=== PATIENT | female | born 1990 | race Caucasian/White ===

== ENCOUNTER 2024-01-22 09:54 | Outpatient (CLI) | payer OTHER, SELFPAY ==
[2024-01-22 10:13] LABS: Hematocrit 40.4 % (37.0-47.0); Hemoglobin 13.3 g/dL (12.0-15.0)
== END 2024-01-22 09:55 | disposition home or self-care (01) ==
PROVIDERS: Visit Provider Obstetrics & Gynecology
DX: Z01.818 Encounter for other preprocedural examination (principal); R10.2 Pelvic and perineal pain
CPT/HCPCS: 36415; 85014; 85018; 86850; 86900; 86901

== ENCOUNTER 2024-01-28 00:30 | Day surgery (SDC) | payer OTHER, SELFPAY ==
[2024-01-18 16:12] VITALS: BMI 28.4
--- NOTE | 2024-01-18 16:19 | PC.NURSE ---
Report to the Outpatient Waiting Room, entrance under the green pavilion located off [facility], at time _0600_ on date _[id number]_. Planned Procedure Time: _0730_. Time changes happen often and if your time is changed the preop area will call you the afternoon before. - You and your visitor will be asked to self-screen and do not enter if you have any COVID symptoms. - A mask is optional within the hospital at this time. Patients may have clear liquids (water, carbonated beverages, clear teas, apple juice) until 3 hours prior to surgery with a maximum of 20 ounces. - No food from midnight until time of surgery Take the following medications with a SIP of water the morning of surgery: __None DO NOT STOP ANY OF YOUR OTHER PRESCRIPTION MEDICATIONS PRIOR TO SURGERY ?EXCEPT THE FOLLOWING Medications to discontinue per physician None Date to take last dose Please no make-up, nail bolivian, hairspray, perfume, deodorant, or body powder the day of surgery. No jewelry (including any body piercings) or valuables the day of surgery, leave them at home. Please take a shower or bath the night before, or the morning of, surgery with an antibacterial soap. Wear comfortable, loose fitting clothing. - Jewelry must be removed prior to entering the operating room. Rings and piercings that are not removed may be cut off. - The hospital will not accept responsibility for valuables. - Please leave all valuables, including medications, at home the day of surgery. If you are going home after surgery, a licensed belly dump driver must drive you home. - NO public transportation without another adult if you receive anesthesia. - We recommend that an adult stay with you for 24 hours following discharge. - We also recommend that you do not drive, make important decision, drink alcoholic beverages, or take any drugs that were not prescribed by your health care provider for at least 24 hours after your discharge time. Follow any additional instructions given to you from your surgeon. If you or anyone in your household have experienced Covid symptoms in the past week, please notify your surgeon or the nurse liaison at the phone number below for possible testing. Telephone instructions given to _Charis__and asked if any additional questions and then verbalized understanding. Patient advised to call surgeon office or pre surgery nurse liaison [phone] if any additional questions.
--- NOTE | 2024-01-25 12:42 | PM.IMHP ---
H&P: HPI History of Present Illness Date/Time: 01/25/24 12:42 Chief Complaint: Pelvic pain and bleeding Narrative: This is a 33-year-old 3 para 3 for laparoscopy hysteroscopy dilatation curettage secondary to dyspareunia pelvic pain irregular bleeding periods extremely heavy she has pain with intercourse makes possible sex she has had negative STD cultures. She had a pelvic ultrasound which showed the myometrium in endometrial canal to be unremarkable without any masses in light of her continued bleeding and pain she is admitted for laparoscopy/hysteroscopy/dilatation curettage. Risks and benefits reviewed including but not exclusive of , aspiration pneumonia, bleeding, transfusion, perforation injury to bowel, bladder, ureters, or other internal organs with the need for open laparotomy. She received the ACOG handout entitled laparoscopy, hysteroscopy, dilatation curettage respectively. She had all questions answered and asked to proceed PMFSH Social History Social History Years smoked: 15 Smoking status: Current every day smoker Tobacco type: cigarettes and e-cigarettes/vaping Living arrangements: with family Spiritual care concerns: No Meds Home Medications and Allergies Home Medications Medication Instructions Recorded Confirmed Type No Home Medications 01/18/24 01/18/24 History Allergies Allergy/AdvReac Type Severity Reaction Status Date / Time No Known Allergies Allergy Verified 01/18/24 16:11 Exam Const: General: cooperative, healthy appearing, comfortable and average body habitus Orientation/consciousness: oriented to person, oriented to place and oriented to time Resp: Effort & Inspection: normal respiratory effort Cardio: Rate: regular rate Rhythm: regular rhythm Heart sounds: S1 normal heart sound present and S2 normal heart sound present GI: Inspection: normal to inspection : External Female Exam: normal external appearance Speculum Exam - Vagina: normal appearance of the vagina Speculum Exam - Cervix: normal appearance of the cervix Bimanual exam- vagina & uterus: enlarged Bimanual Exam- Adnexa, other: tender bilaterally Assessment and Plan Assessment and plan (1) Pelvic pain: Code(s): R10.2 - Pelvic and perineal pain Status: Acute (2) Dyspareunia: Status: Acute (3) Excessive bleeding: Code(s): R58 - Hemorrhage, not elsewhere classified Status: Acute Assessment and Plan: Hysteroscopy/dilatation curettage/laparoscopy
--- NOTE | 2024-01-27 15:01 | P.PNAN_ITS ---
Anes - Initial Pre Proc Eval Procedure: Operation Date: 01/28/24 07:30 Proposed Procedures p Diagnostic Laparoscopy, Hysteroscopy Dilation and Curettage - Jonas Lazaro MD Date/Time: 01/27/24 15:01 Surgeon: Jonas Lazaro MD Pre Op Diagnosis: pelvic pain, irr. bleeding, dyspareunia Patient Data Age: 33 Gender: F Height: 1.55 m Weight: 68.2 kg Allergies Allergy/AdvReac Type Severity Reaction Status Date / Time No Known Allergies Allergy Verified 01/28/24 06:04 Home Medications Medication Instructions Recorded Confirmed Type hydrocodone 5 mg-acetaminophen 325 1 tablet PO Q4H PRN pain #20 tabs 01/28/24 Rx mg tablet Patient hx anesthesia problems: none Family hx anesthesia problems: none Results Review: All pre-operative results and documents have been reviewed as part of the pre- operative evaluation. [facility] Social History Social History Years smoked: 15 Smoking status: Current every day smoker Tobacco type: cigarettes and e-cigarettes/vaping Living arrangements: with family Spiritual care concerns: No Anes - Eval Final PreProcedure Day of Procedure 01/27/24 15:01 Patient weight: overweight Heart: regular rate and rhythm Lungs: clear to auscultation Airway: Mallampati scale class II Neurological: alert and oriented Last oral intake: >/= 8 hours ASA classification: II Emergent: no Anesthetic plan: proceed Anesthesia type and monitoring: general ETT and standard monitoring Results Review: All pre-operative results and documents have been reviewed as part of the pre- operative evaluation. Informed Consent: The patient's anesthetic plan and its attendant risks and benefits were discussed with the patient/family/POA. Questions were solicited and answers provided to the satisfaction of the patient/family/POA.
[2024-01-28] VITALS (10 sets, daily range): BP systolic 98–135; BP diastolic 65–90; PULSE 55–91; RESP 10–20; TEMP 36.1–36.9; O2SAT 99–100
--- NOTE | 2024-01-28 06:09 | WPDHPUPDATE1 ---
History and Physical Update Update Date/Time: 01/28/24 06:09 History and Physical has been reviewed, including an updated exam of the patient. There are NO changes in the patient's condition. Risks, benefits, and alternatives have been discussed and questions answered. Patient agrees to proceed with procedure.
[2024-01-28] MEDS: KETOROLAC 15 MG/ML VIAL (*BKC) IV PUSH (06:32)
[2024-01-28] MEDS: LACTATED RINGERS 1,000 ML 30 ML IV CONT (06:32)
[2024-01-28] MEDS: ACETAMINOPHEN 500 MG TABLET 1000 MG PO (06:32)
--- NOTE | 2024-01-28 08:00 | W.PM.PROC2 ---
Procedure Note - Detailed Date of Procedure 01/28/24 Pre-op Diagnosis pelvic pain, irr. bleeding, dyspareunia Post-op Diagnosis Other (Pelvic pain / bilateral ovarian cyst/ irregular bleeding. Dyspareunia) Procedure Performed laparoscopy with destruction of bilateral ovarian cysts /hysteroscopy/ dilatation curettage Surgeon Jonas Lazaro MD Anesthesia General Indications 33-year-old female with excessive heavy bleeding and pelvic pain status post tubal ligation Findings tubes status post tubal ligation. Bilateral simple appearing ovarian cyst. Normal-appearing appendix and gallbladder and liver edge. Hysteroscopy the uterus sounded to 10cm. Thick irregular endometrial tissue was seen. Description of Procedure Patient was prepped draped in normal sterile fashion placed in dorsal lithotomy position. Under excellent general trach anesthesia weighted speculum placed in posterior fornix vagina. Anterior lip of the cervix grasped with a single-tooth tenaculum. Benites's cannula inserted the cervix and attached to the single-tooth. This will be used later for uterine manipulation. Bladder emptied of clear urine and a weighted speculum was removed. Gloves were changed. Supraumbilical incision made the Veress needle passed the abdomen. Abdomen filled with CO2 gas to 15 the 5mm trocar advanced under direct visualization with the Optiview when no injury seen. Patient placed in Trendelenburg and a suprapubic incision made. No injury seen. Bilateral ovarian cysts were seen in using the 35 w per sec cautery the cysts were emptied and the irrigated. No evidence of endometriosis was seen. The tubes were status post tubal ligation. The appendix liver gallbladder edge all appeared within normal limits. The trocars removed and the incisions closed with 4 Monocryl glue after gas removed from the abdomen. Attention turned to the hysteroscopy be portion. Uterus sounded to 10cm. Serial dilatation with fragmented dilators performed followed by passage of the 5mm visualizing hysteroscope using normal saline as visualizing medium. Thick irregular endometrial tissue could be seen. Each fallopian tube os was visualized. No definitive abnormalities were seen. The uterus was then scraped over the entire 360?. Once a good grating sound was heard the instruments withdrawn and the patient was awake and went to recovery in satisfactory condition. All sponge, needle, instrument counts were correct. There were no immediate complications Estimated Blood Loss 5 Drains No Packing No Pathology Yes Complications No immediate complications Condition Stable Disposition PACU
--- NOTE | 2024-01-28 08:32 | SUR.PHASEI ---
0830: Simple mask removed.
== END 2024-01-28 10:03 | disposition home or self-care (01) ==
PROVIDERS: Visit Provider Obstetrics & Gynecology
PROC: 0UDB8ZZ Extraction of Endometrium, Via Natural or Artificial Opening Endoscopic (ICD-10-PCS; CPT 58558; principal; 2024-01-28 07:30)
DX: N83.202 Unspecified ovarian cyst, left side (principal); N83.201 Unspecified ovarian cyst, right side; F17.290 Nicotine dependence, other tobacco product, uncomplicated; Z79.891 Long term (current) use of opiate analgesic; Z98.51 Tubal ligation status
CPT/HCPCS: 58662; 58563; 36415; 85014; 85018; 86850; 86900; 86901; 88305; A9270; J0330; J1100; J1885; J2250; J2405; J2704; J3010; J7030; J7120

== ENCOUNTER 2024-05-30 18:41 | Emergency (ER) | payer OTHER, SELFPAY ==
[2024-05-30 19:05] VITALS: BP 145/90; PULSE 77; RESP 16; TEMP 36.8; O2SAT 100
--- NOTE | 2024-05-30 19:29 | ED_ITS ---
HPI - Skin/Abscess/Foreign Bdy General Chief complaint: Skin/Abscess/Foreign Body Stated complaint: LT Side insect bite Time Seen by Provider: 05/30/24 19:29 Source: patient, RN notes reviewed and old records reviewed Mode of arrival: ambulatory Limitations: no limitations History of Present Illness HPI narrative: 34-year-old female presents to the [facility] with concerns of a red, raised, firm area to the right lower rib area. Patient states that she noticed it 2 days ago. Area is warm to touch. Related Data Allergies Allergy/AdvReac Type Severity Reaction Status Date / Time No Known Allergies Allergy Verified 01/28/24 06:04 Review of Systems Review of Systems: All systems reviewed & are unremarkable except as noted in HPI and below Constitutional: Constitutional: Reports no additional constitutional comp laints ENT: Reports system reviewed and no additional complaints, except as documented Cardiovascular: Cardiovascular: Reports no additional cardiovascular complaints, Denies chest pain and Denies dyspnea Respiratory: Respiratory: Reports no additional respiratory complaints, Denies chest congestion, Denies cough and Denies dyspnea Gastrointestinal: Gastrointestinal: Reports no additional gastrointestinal complaints, Denies abdominal pain, Denies nausea and Denies vomiting Musculoskeletal: Musculoskeletal: Reports no additional musculoskeletal comp laints PMFSH Social History Social History Years smoked: 15 Smoking status: Current every day smoker Tobacco type: cigarettes and e-cigarettes/vaping Living arrangements: with family Spiritual care concerns: No Comments At the time of my signature, I reviewed and agree with the nursing past medical, surgical, social, and family history. There is no relevant family history pertinent to the patient complaint. Exam Const: General: cooperative, healthy appearing, comfortable, no acute distress, well developed, alert and well nourished Nutritional Appearance: well nourished Orientation/consciousness: patient oriented x3 Limitations: no limitations HENMT: Head: normal to inspection Ears: hearing grossly normal bilaterally and external ears normal Face/Nose/Sinus: Normal external nose present, normal facial exam and face symmetric Face and sinus: normal facial exam and face symmetric Eyes: General: appearance normal, both eyes and all related structures Alignment and Position: alignment normal Periorbital: periorbital findings normal Neck: Neck: normal visual inspection, full ROM, no lymphadenopathy and no meningeal signs Chest: Chest palpation & inspection: normal inspection of the chest Resp: Effort & Inspection: normal respiratory effort and able to speak in complete sentences Cardio: Rate: regular rate Skin: General skin exam: normal color and no rashes or lesions noted Rashes: no rashes Wounds: no wounds Full body images: 1. 1x1 cm red raised area, warm, pink area extends to by 1 cm. No drainage. No fluctuance. Neuro: General: patient oriented x3, gait normal, tone normal, moves all extremities and no meningeal signs Cognition (Neuro): normal cognition Speech: normal speech Gait exam (Neuro): Normal gait present Extrem: General: normal to inspection, full ROM, capillary refill normal and normal gait Psych: Appearance: grossly normal and well kempt Mental Status: mental status grossly normal Speech and movement: Normal speech and movement present and Clear speech present Affect: normal affect Attitude: cooperative Course Course Level of Care: Express Care Visit Vital Signs Vital signs: Vital Signs Temperature 98.3 F 05/30/24 19:05 Pulse Rate 77 05/30/24 19:05 Respiratory Rate 16 05/30/24 19:05 Blood Pressure 145/90 H 05/30/24 19:05 Pulse Oximetry 100 05/30/24 19:05 Oxygen Delivery Room Air 05/30/24 19:05 Temperature 98.3 F 05/30/24 19:05 Pulse Rate 77 05/30/24 19:05 Respiratory Rate 16 05/30/24 19:05 Blood Pressure 145/90 H 05/30/24 19:05 Pulse Oximetry 100 05/30/24 19:05 Oxygen Delivery Room Air 05/30/24 19:05 Reviewed MDM - Skin/Abscess/Foreign Bdy MDM Narrative Medical decision making narrative: 34-year-old female presents with redness, irritation to the right rib anterior portion Patient sitting comfortably in exam room. Nontoxic, vitals are stable. Concern for cellulitis versus insect bite or inflammation. Will treat with antibiotic Patient appropriate for outpatient treatment and follow-up Discharge instructions reviewed with patient, as well as provided in writing per nursing staff. The instructions also include specific and strict return/GO TO THE ER as well as f/u information. All questions have been answered, and the patient deny any further questions with discharge and discharge plan. Some parts of this dictation were generated by voice recognition software and may contain typographical and/or grammatical inaccuracies. Differential Diagnosis Differential diagnosis: Likely herpes zoster, cellulitis, insect bites and contact dermatitis Critical Care Time Critical Care Time Critical Care Time: No Discharge Plan Discharge Clinical Impression: Cellulitis Qualifiers: Site of cellulitis: unspecified site Qualified Code(s): L03.90 - Cellulitis, unspecified Patient Disposition: Home, Self-Care Condition: Stable Instructions: Antibiotic Form, Cellulitis (ED), Insect Bite or Sting (ED) Additional Instructions: Wash area with warm soapy water twice daily. Pat dry. Apply warm compresses every 2-3 hours for 15 minutes. Take antibiotic as prescribed Follow-up with primary care provider For new or worsening symptoms go directly to the emergency room Patient Language: Panamanian Prescriptions: New cephalexin 500 mg capsule 500 mg PO Q8H 7 Days Qty: 21 0RF Follow-up/Referrals: PHYSICIAN,WALL CLEANER [Primary Care Provider] - Stand Alone Forms: Work/School Release IP Time of Disposition: 19:38
== END 2024-05-30 19:43 | disposition home or self-care (01) ==
PROVIDERS: Emergency Provider Nurse Practitioner
DX: L03.313 Cellulitis of chest wall (principal); F17.210 Nicotine dependence, cigarettes, uncomplicated; F17.290 Nicotine dependence, other tobacco product, uncomplicated
CPT/HCPCS: 99213; G0463

== ENCOUNTER 2024-08-21 13:56 | Emergency (ER) | payer OTHER, SELFPAY ==
[2024-08-21 14:18] VITALS: BP 134/87; PULSE 90; RESP 16; TEMP 37; O2SAT 100
--- NOTE | 2024-08-21 14:49 | ED_ITS ---
HPI - General Adult General Chief complaint: Upper Respiratory Infection Stated complaint: Cough History of Present Illness HPI narrative: Charis Austin is a 34-year-old female who presents today with complaints of having a cough often nonproductive for the past 2 weeks. She does not think that she has had any fevers denies chest pain denies shortness of breath. Related Data Allergies Allergy/AdvReac Type Severity Reaction Status Date / Time No Known Allergies Allergy Verified 08/21/24 14:25 Review of Systems Review of Systems: All systems reviewed & are unremarkable except as noted in HPI and below PMFSH Social History Social History Years smoked: 15 Smoking status: Current every day smoker Tobacco type: cigarettes and e-cigarettes/vaping Living arrangements: with family Spiritual care concerns: No Exam Narrative: GENERAL: Well-appearing, well-nourished, and in no acute distress. HEAD: Normocephalic, atraumatic. EYES: PERRLA and EOMI. ENT: Nares clear, no rhinorrhea or epistaxis. Mucous membranes moist. Oropharynx without tonsillar hypertrophy exudate or other lesions. Bilateral TMs pearly murphy nonbulging NECK: Supple. No adenopathy or masses. No carotid bruits or JVD CHEST: Clear with mild adventitious sounds in the posterior bases to auscultation. No respiratory distress. No wheezes HEART: Regular rate and rhythm. No murmur heard. Normal peripheral pulses. ABDOMEN: Soft, nontender, nondistended, normal active bowel sounds. EXTREMITIES: Normal range of motion. No edema. SKIN: Warm, dry, no rash. NEURO: No focal deficits. Alert and oriented x3. PSYCH: Normal mood and affect. Course Course Level of Care: Express Care Visit Vital Signs Vital signs: Vital Signs Temperature 37.0 C 08/21/24 14:18 Pulse Rate 90 08/21/24 14:18 Respiratory Rate 16 08/21/24 14:18 Blood Pressure 134/87 08/21/24 14:18 Pulse Oximetry 100 08/21/24 14:18 Oxygen Delivery Room Air 08/21/24 14:18 Temperature 37.0 C 08/21/24 14:18 Pulse Rate 90 08/21/24 14:18 Respiratory Rate 16 08/21/24 14:18 Blood Pressure 134/87 08/21/24 14:18 Pulse Oximetry 100 08/21/24 14:18 Oxygen Delivery Room Air 08/21/24 14:18 Medical Decision Making MDM Narrative Medical decision making narrative: ED COURSE AND MEDICAL DECISION MAKING: This 34 year old patient presents with symptoms most suggestive of viral upper respiratory tract infection. Lungs are clear bilaterally With mild adventitious sounds in the bases posteriorly- without any respiratory distress or accessory muscle use. based on exam and length of symptoms will treat her for acute bronchitis with azithromycin. Patient is discharged home in stable condition with expectant management. Return precautions were provided. Procedures: Pulse oximetry interpretation - not hypoxic. Review of medical records. DISPOSITION: Discharged home in stable condition. IMPRESSION: Acute Bronchitis Medical Records Medical records reviewed: Yes I reviewed the external patient's medical records. Vital Signs Vital Signs: Vital Signs Temperature 37.0 C 08/21/24 14:18 Pulse Rate 90 08/21/24 14:18 Respiratory Rate 16 08/21/24 14:18 Blood Pressure 134/87 08/21/24 14:18 Pulse Oximetry 100 08/21/24 14:18 Oxygen Delivery Room Air 08/21/24 14:18 Temperature 37.0 C 08/21/24 14:18 Pulse Rate 90 08/21/24 14:18 Respiratory Rate 16 08/21/24 14:18 Blood Pressure 134/87 08/21/24 14:18 Pulse Oximetry 100 08/21/24 14:18 Oxygen Delivery Room Air 08/21/24 14:18 vitals reviewed by me Discharge Plan Discharge Clinical Impression: Acute bronchitis Qualifiers: Bronchitis organism: unspecified organism Qualified Code(s): J20.9 - Acute bronchitis, unspecified Patient Disposition: Home, Self-Care Condition: Stable Instructions: Antibiotic Form Additional Instructions: Start taking the Azithromycin as ordered Continue to push oral hydration Get plenty of rest Follow up with your PCP in 2-5 days to ensure you are improving IF you develop any worsening symptoms or concerns return or seek emergency care Patient Language: [place] Citizen Prescriptions: New azithromycin 250 mg tablet See Rx Instructions .ROUTE .COMPLEX Qty: 6 0RF Rx Instructions: For 250 mg dose pack: take 500 mg today (day 1), then 250 mg for 4 days (days 2-5) Follow-up/Referrals: Zeyad Monique MD [Primary Care Provider] - 3 Days Stand Alone Forms: Work/School Release IP Time of Disposition: 14:53
== END 2024-08-21 14:58 | disposition home or self-care (01) ==
PROVIDERS: Emergency Provider Nurse Practitioner Family; PCP Family Medicine
DX: J20.9 Acute bronchitis, unspecified (principal); F17.210 Nicotine dependence, cigarettes, uncomplicated; F12.90 Cannabis use, unspecified, uncomplicated
CPT/HCPCS: 99213; G0463

== ENCOUNTER 2024-09-24 08:52 | Emergency (ER) | payer OTHER, SELFPAY ==
--- NOTE | 2024-09-24 08:58 | ED.URI ---
HPI - URI/Sore Throat General Chief Complaint: Upper Respiratory Infection Stated Complaint: sore throat , cough Time Seen by Provider: 09/24/24 08:59 Source: patient, RN notes reviewed and old records reviewed Mode of arrival: ambulatory Limitations: no limitations History of Present Illness HPI Narrative: Patient presents with complaints of 3 days of runny nose, sore throat, cough. She has been taking [id number] medication with minimal relief. She was treated approximately 1 month ago with azithromycin for bronchitis. States she completed treatment as directed and improved. 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 She is nontoxic appearing and in no obvious Related Data Home Medications ?Medication ?Instructions ?Recorded ?Confirmed ?Last Taken ?Type No Home Medications 09/21/24 09/21/24 Unknown History Allergies Allergy/AdvReac Type Severity Reaction Status Date / Time No Known Allergies Allergy Verified 09/24/24 08:55 Review of Systems Review of Systems: All systems reviewed & are unremarkable except as noted in HPI and below Constitutional: Constitutional: Reports no additional constitutional complaints and Reports lethargy ENT: Reports system reviewed and no additional complaints, except as documented, Reports nasal congestion, Reports nasal discharge and Reports sore throat Cardiovascular: Cardiovascular: Reports no additional cardiovascular complaints Respiratory: Respiratory: Reports no additional respiratory complaints and Reports cough Gastrointestinal: Gastrointestinal: Reports no additional gastrointestinal complaints [facility] Social History Social History Smoking packs per day: 0.5 Smoking cigarettes per day: 10.0 Years smoked: 16 Smoking pack-years: 8.00 Smoking status: Former smoker Tobacco type: e-cigarettes/vaping Alcohol intake: current Alcohol use details: very rare Living arrangements: with family Spiritual care concerns: No Comments At the time of my signature, I reviewed and agree with the nursing past medical, surgical, social, and family history. There is no relevant family history pertinent to the patient complaint. Exam Const: General: cooperative, no acute distress, alert and awake Orientation/consciousness: oriented to person, oriented to place and oriented to time HENMT: Head: normal to inspection Ears: TM's normal bilaterally Mouth: Yes moist mucous membranes Throat: posterior oropharynx normal Resp: Effort & Inspection: normal respiratory effort and able to speak in complete sentences Auscultation: clear to auscultation bilaterally, no crackles, no rales, no rhonchi and no wheezes Cardio: Palpation: normal PMI Rate: regular rate Rhythm: regular rhythm Heart sounds: S1 normal heart sound present and S2 normal heart sound present Neuro: General: oriented to person, oriented to place and oriented to time Cranial nerves: Yes CN's II-XII intact bilaterally Psych: Appearance: grossly normal Thought process: Normal thought process present Insight: Good insight present (Psych) Judgement: Good judgement present (Psych) Course Course Level of Care: Express Care Visit Vital Signs Vital signs: Vital Signs Temperature 98.9 F 09/24/24 09:01 Pulse Rate 102 H 09/24/24 09:01 Respiratory Rate 16 09/24/24 09:01 Blood Pressure 129/84 09/24/24 09:01 Pulse Oximetry 99 09/24/24 09:01 Oxygen Delivery Room Air 09/24/24 09:01 Temperature 98.9 F 09/24/24 09:01 Pulse Rate 102 H 09/24/24 09:01 Respiratory Rate 16 09/24/24 09:01 Blood Pressure 129/84 09/24/24 09:01 Pulse Oximetry 99 09/24/24 09:01 Oxygen Delivery Room Air 09/24/24 09:01 Reviewed MDM - URI/Sore Throat MDM Narrative Medical decision making narrative: negative flu, negative COVID, negative strep. Culture pending. Supportive care measures discussed with patient. Work note provided. Symptoms are likely viral in origin Discharge instructions reviewed with patient, as well as provided in writing per nursing staff. The instructions also include specific and strict return/GO TO THE ER as well as f/u information. All questions have been answered, and the patient deny any further questions with discharge and discharge plan. Some parts of this dictation were generated by voice recognition software and may contain typographical and/or grammatical inaccuracies. Differential Diagnosis Differential diagnosis: Likely upper respiratory infection, otitis media, viral infection, influenza and pharyngitis Medical Records Attestation: I reviewed the patient's medical records. Lab Data Attestation: I reviewed the patient's lab results. Discharge Plan Discharge Clinical Impression: Upper respiratory infection Qualifiers: URI type: unspecified viral URI Qualified Code(s): J06.9 - Acute upper respiratory infection, unspecified Patient Disposition: Home, Self-Care Condition: Stable Instructions: Antibiotic Form, Cold Symptoms (ED) Additional Instructions: continue jskj-men-[id number] medications to treat your symptoms. Follow-up with primary care provider. Emergency department for any new or worsening symptoms. Push fluids, get plenty of rest. Patient Language: Irish Prescriptions: No Action No Home Medications Follow-up/Referrals: Zeyad Monique MD [Primary Care Provider] - 2 Weeks Stand Alone Forms: Work/School Release IP Time of Disposition: 09:28
[2024-09-24 09:01] VITALS: BP 129/84; PULSE 102; RESP 16; TEMP 37.2; O2SAT 99
[2024-09-24 09:27] LABS: EDCOVIDSCREEN Negative (Negative); EDINFLUASCREEN Negative (Negative); EDINFLUBSCREEN Negative (Negative); EDSTREPNEGPOS1 Negative (Negative)
== END 2024-09-24 09:29 | disposition home or self-care (01) ==
PROVIDERS: Emergency Provider Nurse Practitioner Family; PCP Family Medicine
DX: J06.9 Acute upper respiratory infection, unspecified (principal); Z20.822 Contact with and (suspected) exposure to COVID-19; F17.290 Nicotine dependence, other tobacco product, uncomplicated
CPT/HCPCS: 87081; 87426; 87804; 87880; 99213; G0463

== ENCOUNTER 2024-09-26 16:48 | Emergency (ER) | payer OTHER, SELFPAY ==
--- NOTE | ~2024-09-26 | XR_ITS ---
EXAMINATION: XR chest 2V Exam Date/Time: 09/26/2024 17:40 CDT HISTORY: cough Comparison: None. RESULT: Lines, tubes, and devices: None. Lungs and pleura: Clear. Cardiomediastinal silhouette: Normal. Other: No acute osseous or upper abdominal finding. IMPRESSION: No acute cardiopulmonary process. Reviewed, dictated and finalized at location K.
[2024-09-26 16:56] VITALS: BP 142/99; PULSE 86; RESP 16; TEMP 36.6; O2SAT 100
--- NOTE | 2024-09-26 17:30 | ED.URI ---
HPI - URI/Sore Throat General Chief Complaint: Upper Respiratory Infection <Eli Cee PA-C - Last Filed: 09/29/24 17:02> Stated Complaint: shortness of breath x 2 weeks <Eli Cee PA-C - Last Filed: 09/29/24 17:02> Time Seen by Provider: 09/26/24 17:30 <Eli Cee PA-C - Last Filed: 09/29/24 17:02> Focused HPI: This is a 34 year old female that presents to the ER for cold symptoms. Ongoing over the last couple of weeks. Reports she was seen at urgent care and had negative strep, covid and influenza. Reports productive cough. She was told to take over the counter medications and is not feeling any better. GENERAL: Well-appearing, well-nourished, and in no acute distress. HEAD: Normocephalic, atraumatic. CHEST: Clear to auscultation. ?No respiratory distress. HEART: Regular rate and rhythm.? NEURO: ?Alert and oriented x3. Patient screened in triage and initial orders placed.? ?Additional care and disposition to be based upon?diagnostic testing and treatment. <Eli Cee PA-C - Last Filed: 09/29/24 17:02> History of Present Illness HPI Narrative: Agree with the HPI above. Patient does have sick contacts at home and at work. <Jerod Astorga MD - Last Filed: 09/26/24 21:08> Related Data Allergies/Adverse Reactions: Allergies Allergy/AdvReac Type Severity Reaction Status Date / Time No Known Allergies Allergy Verified 09/24/24 08:55 <Eli Cee PA-C - Last Filed: 09/29/24 17:02> Review of Systems Review of Systems: As reviewed above in HPI <Jerod Astorga MD - Last Filed: 09/26/24 21:08> PMFSH Social History Social History: Social History Smoking packs per day: 0.5 Smoking cigarettes per day: 10.0 Years smoked: 16 Smoking pack-years: 8.00 Smoking status: Former smoker Tobacco type: e-cigarettes/vaping Alcohol intake: current Alcohol use details: very rare Living arrangements: with family Spiritual care concerns: No <Eli Cee PA-C - Last Filed: 09/29/24 17:02> Exam Narrative: GENERAL: [Well-appearing, well-nourished, and in no acute distress.] HEAD: [Normocephalic, atraumatic.] EYES: [PERRLA and EOMI.] ENT: Posterior oropharynx is erythematous without any exudates. No tonsillar erythema or enlargement. Uvula is midline. Moist mucous membranes. NECK: Supple. CHEST: Asymmetric wheezing in the left upper part of the lobes compared to the right, no prolonged expiratory phase, no tachypnea or respiratory distress. HEART: [Regular rate and rhythm]. No murmur heard. [Normal peripheral pulses.] ABDOMEN: [Soft, nondistended], [nontender], [No rigidity or guarding] EXTREMITIES: Normal range of motion. [No edema.] SKIN: Warm, dry, no rash. NEURO: [No focal deficits]. Alert and oriented [x3.] PSYCH: [Normal mood and affect.] <Jerod Astorga MD - Last Filed: 09/26/24 21:08> Course Vital Signs Vital signs: Vital Signs Temperature 97.9 F 09/26/24 16:56 Pulse Rate 86 09/26/24 16:56 Respiratory Rate 16 09/26/24 16:56 Blood Pressure 142/99 H 09/26/24 16:56 Pulse Oximetry 100 09/26/24 16:56 Oxygen Delivery Room Air 09/26/24 16:56 Temperature 98.9 F 09/26/24 20:18 Pulse Rate 80 09/26/24 20:18 Respiratory Rate 17 09/26/24 20:18 Blood Pressure 135/102 H 09/26/24 20:18 Pulse Oximetry 100 09/26/24 20:22 Oxygen Delivery Room Air 09/26/24 20:22 <Eli Cee PA-C - Last Filed: 09/29/24 17:02> Vital Signs Temperature 97.9 F 09/26/24 16:56 Pulse Rate 86 09/26/24 16:56 Respiratory Rate 16 09/26/24 16:56 Blood Pressure 142/99 H 09/26/24 16:56 Pulse Oximetry 100 09/26/24 16:56 Oxygen Delivery Room Air 09/26/24 16:56 Temperature 98.9 F 09/26/24 20:18 Pulse Rate 80 09/26/24 20:18 Respiratory Rate 17 09/26/24 20:18 Blood Pressure 135/102 H 09/26/24 20:18 Pulse Oximetry 100 09/26/24 20:22 Oxygen Delivery Room Air 09/26/24 20:22 <Jerod Astorga MD - Last Filed: 09/26/24 21:08> MDM - URI/Sore Throat MDM Narrative Medical decision making narrative: 34-year-old female presenting with upper respiratory infection symptoms and dyspnea for last several weeks. Endorses cough, congestion and mucus production. She went to urgent care 2 days ago without any treatment options. She has tried [id number] therapies without any relief of her symptoms. She is overall very well-appearing not any acute distress. Has normal vital signs without any significant tachycardia, fever, hypoxia blood pressure concerns. She has some asymmetric scattered wheezing especially left upper lobe compared to the right ridge raises suspicion for potential bronchitis, strep throat, reactive airway disease, consolidation. Patient was a former smoker for 15 years. Suspicion for COVID or influenza is high given the high infectious rates in the area. Chest x-ray obtained as well as viral swabs and strep swab. Patient is a viral swabs came back negative for COVID, flu, RSV. Strep test negative. Chest x-ray shows no acute cardiopulmonary process. Given patient's symptomatology refractory to [id number]-[id number] therapies and regimens and duration of her symptoms she would benefit from treatment options such as steroids and potential albuterol given her smoking history. Will offer prescription for Medrol Dosepak, albuterol inhaler as needed and benzonatate. Patient was made aware of her findings and stable for discharge home at this time with regular PCP follow-up. <Jerod Astorga MD - Last Filed: 09/26/24 21:08> Medical Records Attestation: I reviewed the patient's medical records. <Jerod Astorga MD - Last Filed: 09/26/24 21:08> Lab Data Attestation: I reviewed the patient's lab results. <Jerod Astorga MD - Last Filed: 09/26/24 21:08> Labs: Lab Results 09/26/24 Range/Units 20:20 Influenza A (RT-PCR) Negative (Negative) Influenza B (RT-PCR) Negative (Negative) RSV (RT-PCR) Negative (Negative) SARS-CoV-2 RNA (RT-PCR) Negative (Negative) Group A Strep (PCR) Not detected (Negative) <Eli Cee PA-C - Last Filed: 09/29/24 17:02> Lab Results 09/26/24 Range/Units 20:20 Influenza A (RT-PCR) Negative (Negative) Influenza B (RT-PCR) Negative (Negative) RSV (RT-PCR) Negative (Negative) SARS-CoV-2 RNA (RT-PCR) Negative (Negative) Group A Strep (PCR) Not detected (Negative) <Jerod Astorga MD - Last Filed: 09/26/24 21:08> Imaging Data Attestation: I personally reviewed and interpreted this imaging study as follows: <Jerod Astorga MD - Last Filed: 09/26/24 21:08> My impression: Impressions Chest X-Ray 09/26/24 17:48 IMPRESSION: No acute cardiopulmonary process. <Jreod Astorga MD - Last Filed: 09/26/24 21:08> Critical Care Time Critical Care Time Critical Care Time: No <Eli Cee PA-C - Last Filed: 09/29/24 17:02> Discharge Plan Discharge Clinical Impression: Acute upper respiratory infection, Acute viral syndrome <Eli Cee PA-C - Last Filed: 09/29/24 17:02> Patient Disposition: Home, Self-Care <CHAY Bennett Last Filed: 09/29/24 17:02> Condition: Stable <CHAY Bennett Last Filed: 09/29/24 17:02> Instructions: Antibiotic Form, Upper Respiratory Infection (DC), Viral Syndrome (ED) <Eli Cee PA-C - Last Filed: 09/29/24 17:02> Additional Instructions: Your chest x-ray shows no consolidations or evidence of a pneumonia. You tested negative for COVID, flu, RSV and strep throat. You likely have another virus causing your upper respiratory symptoms which we are unable to test for here in the ED. We will send you home with treatment regimen including steroids, albuterol inhaler as needed and benzonatate for cough suppression. Follow-up with PCP, return with any new or worsening concerns at any time. <Eli Cee PA-C - Last Filed: 09/29/24 17:02> Patient Language: Maldivian <Eli Cee PA-C - Last Filed: 09/29/24 17:02> Prescriptions: New benzonatate 200 mg capsule 200 mg PO TID PRN (Reason: cough) Qty: 20 0RF methylprednisolone [Medrol (Antione)] 4 mg tablets,dose pack See Rx Instructions .ROUTE .COMPLEX Qty: 21 0RF Rx Instructions: orally per package directions albuterol sulfate 90 mcg/actuation HFA aerosol inhaler 2 puff inhalation QID PRN (Reason: shortness of breath or wheezing) Qty: 8.5 0RF <Eli Cee PA-C - Last Filed: 09/29/24 17:02> Follow-up/Referrals: Zeyad Monique MD [Primary Care Provider] - Osmar Nick MD [Physician] - 1 Week (Needs new PCP) <Eli Cee PA-C - Last Filed: 09/29/24 17:02> Time of Disposition: 21:08 <Eli Cee PA-C - Last Filed: 09/29/24 17:02> 21:08 <Jerod Astorga MD - Last Filed: 09/26/24 21:08>
[2024-09-26 20:18] VITALS: BP 135/102; PULSE 80; RESP 17; TEMP 37.2; O2SAT 100
[2024-09-26 20:22] VITALS: O2SAT 100
[2024-09-26 20:49] LABS: Strep Group A RT-PCR NOT DETECTED (Negative)
[2024-09-26 21:00] LABS: Influenza A QL RT-PCR Negative (Negative); Influenza B QL RT-PCR Negative (Negative); RSV RNA, RT-PCR Negative (Negative); SARS-CoV-2 RNA PCR Negative (Negative)
== END 2024-09-26 21:13 | disposition home or self-care (01) ==
PROVIDERS: Emergency Provider Student in an Organized Health Care Education/Training Program; PCP Family Medicine
DX: B34.9 Viral infection, unspecified (principal); J06.9 Acute upper respiratory infection, unspecified; Z20.822 Contact with and (suspected) exposure to COVID-19
CPT/HCPCS: 71046; 87637; 87651; 99283

== ENCOUNTER 2024-10-02 15:11 | Emergency (ER) | payer OTHER, SELFPAY ==
--- NOTE | ~2024-10-02 | US_ITS ---
EXAM: PELVIC ULTRASOUND HISTORY: RLQ pain, hx ovarian cysts, r/o torsion COMPARISON: None. Reference is made to the CT examination of the abdomen and pelvis performed on the same day, approxim ately 4 hours earlier. FINDINGS: UTERUS: 9.3 x 4.4 x 5.4 cm. The uterus is anteverted and anteflexed. The endometrial complex measures 10 mm. RIGHT OVARY: The right ovary is unremarkable in echogenicity and size measuring 2.6 x 1.6 x 1.9 cm. Dopplerable flow is identified. LEFT OVARY: The left ovary is unremarkable in echogenicity and size measuring 2.4 x 1.6 x 1.6 cm Dopplerable flow is identified. No free fluid is identified within the pelvis. IMPRESSION: Unremarkable ultrasound examination of the pelvis, as detailed above. Reviewed, dictated and finalized at location A.
--- NOTE | ~2024-10-02 | CT_ITS ---
CLINICAL INDICATION: Right lower quadrant pain COMPARISON: None. TECHNIQUE: Multiple contiguous axial images of the abdomen and pelvis were performed following the ad ministration of with 100 mL Omnipaque-350 intravenous contrast The dose-length product (DLP) was 528.80 mGy-cm. Automated exposure control and iterative reconstruction technique were employed. FINDINGS/OBSERVATIONS: Visualized lower thorax: The bilateral lung bases are clear. The heart is of normal size, without pericardial effusion. Small hiatal hernia is present. Liver: The liver demonstrates homogeneous enhancement and is not enlarged measuring 18 cm in longitudinal di mension. Gallbladder and biliary system: The gallbladder is only minimally distended, and otherwise unremarkable. Pancreas: The pancreas enhances homogeneously without ductal dilatation. Spleen: The spleen enhances homogeneously and is borderline enlarged measuring 12 cm in longitudinal dimensio n. Kidneys: The bilateral kidneys enhance symmetrically without hydronephrosis or renal calculi. Adrenal glands: Unremarkable. Gastrointestinal tract: Fecal stasis within the colon. Appendix: The air-filled appendix is of normal caliber (axial series, images 95 through 124). Vasculature: Unremarkable. Lymph nodes: No pathologically enlarged or morphologically suspicious lymph nodes within the retroperitoneum or at the root of the mesentery. Pelvic structures: The bladder is decompressed limiting its evaluation. The uterus is anteverted and anteflexed. Body wall and musculoskeletal: Small fat-containing umbilical hernia. No significant degenerative disease within the lower thoracic or lumbosacral spine. IMPRESSION: No acute intra-abdominal pathology, as detailed above. Reviewed, dictated and finalized at location A.
[2024-10-02 15:47] VITALS: BP 116/82; PULSE 79; RESP 16; TEMP 36.5; O2SAT 99
--- NOTE | 2024-10-02 18:04 | ED_ITS ---
HPI - Abdominal Pain General Chief Complaint: Abdominal Pain <Faby Stephens SUPERVISOR [employer]ADING - Last Filed: 10/02/24 18:08> Stated Complaint: abd, pelvic pain <Faby Stephens SUPER[employer]OR [employer]ADING - Last Filed: 10/02/24 18:08> Time Seen by Provider: 10/02/24 17:45 <Faby Stephens SUPER[employer]ING - Last Filed: 10/02/24 18:08> Focused HPI: Patient is a 34-year-old female who presents to the ER with complaints of right lower quadrant pain. She reports the pain started yesterday. Patient reports she has a significant history of ovarian cysts, endometriosis, abnormal Pap smears, and other women's health issues. She reports she has a biopsy scheduled for this Friday, October 04, 2024, with Dr. Claudia Lazaro. Patient denies any urinary symptoms or recent fevers. Her last menstrual period was on September 18, 2024. GENERAL: Well-appearing, well-nourished, and in no acute distress. HEAD: Normocephalic, atraumatic. CHEST: Clear to auscultation. ?No respiratory distress. HEART: Regular rate and rhythm.? NEURO: ?Alert and oriented x3. ABD: +McBurney's point, -Psoas sign, + Dunaway's sign, Patient screened in triage and initial orders placed.? ?Additional care and disposition to be based upon?diagnostic testing and treatment. <Faby Stpehens, SUPERVISOR LOADING - Last Filed: 10/02/24 18:08> Focused HPI: Patient is a 34-year-old female who presents to the ER with complaints of right lower quadrant pain. She reports the pain started yesterday. Patient reports she has a significant history of ovarian cysts, endometriosis, abnormal Pap smears, and other women's health issues. She reports she has a biopsy scheduled for this Friday, October 04, 2024, with Dr. Claudia Lazaro. Patient denies any urinary symptoms or recent fevers. Her last menstrual period was on September 18, 2024. GENERAL: Well-appearing, well-nourished, and in no acute distress. HEAD: Normocephalic, atraumatic. CHEST: Clear to auscultation. ?No respiratory distress. HEART: Regular rate and rhythm.? NEURO: ?Alert and oriented x3. ABD: +McBurney's point, -Psoas sign, + Dunaway's sign, Patient screened in triage and initial orders placed.? ?Additional care and disposition to be based upon?diagnostic testing and treatment. <Tomasa Byrne PA-C - Last Filed: 10/02/24 23:50> Source: patient <Tomasa Byrne PA-C - Last Filed: 10/02/24 23:50> Mode of arrival: ambulatory <Tomasa Byrne PA-C - Last Filed: 10/02/24 23:50> Limitations: no limitations <Tomasa Byrne PA-C - Last Filed: 10/02/24 23:50> History of Present Illness HPI narrative: Agree with above HPI. Scheduled for biopsy on Wednesday due to recent abnormal Pap smear. Reports some nausea today. Denies vomiting, diarrhea, constipation, urinary complaints, fevers, abnormal vaginal bleeding. Currently on antibiotic for an upper respiratory infection. States she is feeling improved with this. <Tomasa Byrne PA-C - Last Filed: 10/02/24 23:50> Related Data Allergies/Adverse Reactions: Allergies Allergy/AdvReac Type Severity Reaction Status Date / Time No Known Allergies Allergy Verified 09/24/24 08:55 <Faby Stephens APRN - Last Filed: 10/02/24 18:08> Review of Systems 2 Review of Systems: All systems reviewed & are unremarkable except as noted in HPI. <Tomasa Byrne PA-C - Last Filed: 10/02/24 23:50> All systems reviewed & are unremarkable except as noted in HPI and below < Tomasa Byrne PA-C - Last Filed: 10/02/24 23:50> FORMERLY [facility], [facility] Social History Social History: Social History Smoking packs per day: 0.5 Smoking cigarettes per day: 10.0 Years smoked: 16 Smoking pack-years: 8.00 Smoking status: Former smoker Tobacco type: e-cigarettes/vaping Alcohol intake: current Alcohol use details: very rare Living arrangements: with family Spiritual care concerns: No <Faby Stephens, SUPERVISOR LOADING - Last Filed: 10/02/24 18:08> Exam 2 Narrative: GENERAL: Well appearing, obese with BMI of 30.4, non-toxic, in no acute distress. HEAD: Normocephalic, atraumatic. RESPIRATORY: Airway patent, respirations nonlabored. Clear to auscultation bilaterally, no rales, rhonchi, wheezing. CARDIOVASCULAR: Regular rate and rhythm without murmurs, rubs, or gallops. ABDOMINAL: Soft, focal TTP in RLQ, R pelvic region, no rebound, nondistended. Normoactive BS. MUSCULOSKELETAL: Moves all extremities. No gross deformities. SKIN: Warm, dry, normal color. NEURO: A&O X3. Speech clear. PSYCHIATRIC: Appropriate mood and affect. Normal interaction. <Tomasa Byrne PA-C - Last Filed: 10/02/24 23:50> Course Vital Signs Vital signs: Vital Signs Temperature 97.7 F 10/02/24 15:47 Pulse Rate 79 10/02/24 15:47 Respiratory Rate 16 10/02/24 15:47 Blood Pressure 116/82 10/02/24 15:47 Pulse Oximetry 99 10/02/24 15:47 Temperature 97.7 F 10/02/24 15:47 Pulse Rate 68 10/02/24 23:40 Respiratory Rate 15 10/02/24 23:40 Blood Pressure 122/82 10/02/24 23:40 Pulse Oximetry 100 10/02/24 23:40 Oxygen Delivery Room Air 10/02/24 22:46 <Faby Stephens, SUPERVISOR LOADING - Last Filed: 10/02/24 18:08> Vital Signs Temperature 97.7 F 10/02/24 15:47 Pulse Rate 79 10/02/24 15:47 Respiratory Rate 16 10/02/24 15:47 Blood Pressure 116/82 10/02/24 15:47 Pulse Oximetry 99 10/02/24 15:47 Temperature 97.7 F 10/02/24 15:47 Pulse Rate 68 10/02/24 23:40 Respiratory Rate 15 10/02/24 23:40 Blood Pressure 122/82 10/02/24 23:40 Pulse Oximetry 100 10/02/24 23:40 Oxygen Delivery Room Air 10/02/24 22:46 <Tomasa Byrne PA-C - Last Filed: 10/02/24 23:50> MDM - Abdominal Pain MDM Narrative Medical decision making narrative: Patient presented to ED with right lower quadrant abdominal pain, onset today, history of ovarian cysts. Vital signs are stable upon arrival. Patient is in no acute distress upon my evaluation. Laboratory studies are unremarkable. UA is clear. Urine negative. CT scan of abdomen/pelvis was obtained and unremarkable. Will obtain pelvic ultrasound to further evaluate and rule out torsion. Patient states pain is improved at the time of my evaluation. She declined pain medication in the ED. Pelvic ultrasound without acute findings. Normal blood flow to both ovaries. No comment on ovarian cysts. No free fluid. Patient updated on lab and imaging results, overall reassuring workup. Feel she is safe for discharge home. Pain remains much more tolerable at this time. She has follow-up with her OBGYN on Wednesday. Recommended close follow-up with PCP as well. Discussed strict return precautions. She agrees with plan. Discharged in stable condition. <Tomasa Byrne PA-C - Last Filed: 10/02/24 23:50> Medical Records Attestation: I reviewed the patient's medical records. <Tomasa Byrne PA-C - Last Filed: 10/02/24 23:50> Lab Data Attestation: I reviewed the patient's lab results. <Tomasa Byrne PA-C - Last Filed: 10/02/24 23:50> Result diagrams: 10/02/24 18:10 10/02/24 18:10 <Faby Stephens APRN - Last Filed: 10/02/24 18:08> Labs: Lab Results 10/02/24 10/02/24 10/02/24 Range/Units 18:07 18:10 18:10 WBC 10.1 H (4.5-10.0) K/mm3 RBC 4.83 (4.2-5.4) M/mm3 Hgb 13.1 (12.0-15.0) g/dL Hct 40.8 (37.0-47.0) % MCV 84.5 (80-100) fl MCH 27.1 (26-34) pg MCHC 32.1 (32-36) g/dl RDW 13.2 (11.5-14.5) % Plt Count 333 (150-375) k/mm3 MPV 10.4 (7.4-10.4) fl Immature Gran % (Auto) 0.5 (0-0.5) % Neut % (Auto) 66.2 (45.5-73.1) % Lymph % (Auto) 24.7 (18.3-44.2) % [place] % (Auto) 7.3 (2.6-8.5) % Eos % (Auto) 1.0 (0-4.4) % Baso % (Auto) 0.3 (0.2-1.2) % Lymph # (Auto) 2.49 (0.9-3.2) K/mm3 [place] # (Auto) 0.7 H (0.1-0.6) K/mm3 Eos # (Auto) 0.1 (0-0.3) K/mm3 Baso # (Auto) 0.0 (0.0-0.1) K/mm3 Abs Immat Gran (auto) 0.05 H (0.00-0.031) K/mm3 Absolute Neuts (auto) 6.7 (1.3-6.7) K/mm3 Absolute Nucleated RBC 0.000 (0.0-0.012) K/mm3 Nucleated RBC % 0.0 (0.0-0.2) % PT 12.7 (11.1-14.7) Seconds INR 0.9 APTT 31.0 (22.3-36.8) Seconds Sodium 139 (137-145) mmol/L Potassium 3.7 (3.4-5.0) mmol/L Chloride 100 (98-107) mmol/L Carbon Dioxide 28 (22-30) mmol/L Anion Gap 11 (4-12) mmol/L BUN 17 (7-17) mg/dL Creatinine 0.82 (0.7-1.0) mg/dL Estim Creat Clear Calc 78 ml/min Estimated GFR > 60 (59 - ) Glucose 97 (65-110) mg/dL Calcium 9.5 (8.4-10.2) mg/dL Total Bilirubin 0.2 (0.2-1.3) mg/dL AST 16 (14-36) U/L ALT 16 (6-35) U/L Alkaline Phosphatase 63 (38-126) U/L Total Protein 7.0 (6.3-8.2) g/dL Albumin 4.4 (3.5-5.1) g/dL Lipase 91 Cancelled (23-300) U/L Beta HCG, Quant < 2.39 mIU/ML Urine Color (Yellow) Urine Appearance (Clear) Urine pH (5.0-9.0) Ur Specific [place] (1.001-1.035) Urine Protein (Negative) mg/dL Urine Glucose (UA) (Negative) mg/dL Urine Ketones (Negative) mg/dL Ur Blood (Man) (Negative) Urine Nitrate (Negative) Urine Bilirubin (Negative) Urine Urobilinogen (<2.0) mg/dL Leukocyte Esterase Rfl (Negative) BRANDIN/UL POC Urine HCG, Qual Negative (Negative) 10/02/24 Range/Units 18:10 WBC (4.5-10.0) K/mm3 RBC (4.2-5.4) M/mm3 Hgb (12.0-15.0) g/dL Hct (37.0-47.0) % MCV (80-100) fl MCH (26-34) pg MCHC (32-36) g/dl RDW (11.5-14.5) % Plt Count (150-375) k/mm3 MPV (7.4-10.4) fl Immature Gran % (Auto) (0-0.5) % Neut % (Auto) (45.5-73.1) % Lymph % (Auto) (18.3-44.2) % [place] % (Auto) (2.6-8.5) % Eos % (Auto) (0-4.4) % Baso % (Auto) (0.2-1.2) % Lymph # (Auto) (0.9-3.2) K/mm3 [place] # (Auto) (0.1-0.6) K/mm3 Eos # (Auto) (0-0.3) K/mm3 Baso # (Auto) (0.0-0.1) K/mm3 Abs Immat Gran (auto) (0.00-0.031) K/mm3 Absolute Neuts (auto) (1.3-6.7) K/mm3 Absolute Nucleated RBC (0.0-0.012) K/mm3 Nucleated RBC % (0.0-0.2) % PT (11.1-14.7) Seconds INR APTT (22.3-36.8) Seconds Sodium (137-145) mmol/L Potassium (3.4-5.0) mmol/L Chloride (98-107) mmol/L Carbon Dioxide (22-30) mmol/L Anion Gap (4-12) mmol/L BUN (7-17) mg/dL Creatinine (0.7-1.0) mg/dL Estim Creat Clear Calc ml/min Estimated GFR (59 - ) Glucose (65-110) mg/dL Calcium (8.4-10.2) mg/dL Total Bilirubin (0.2-1.3) mg/dL AST (14-36) U/L ALT (6-35) U/L Alkaline Phosphatase (38-126) U/L Total Protein (6.3-8.2) g/dL Albumin (3.5-5.1) g/dL Lipase (23-300) U/L Beta HCG, Quant Cancelled mIU/ML Urine Color Yellow (Yellow) Urine Appearance Clear (Clear) Urine pH 6.0 (5.0-9.0) Ur Specific [place] 1.028 (1.001-1.035) Urine Protein Negative (Negative) mg/dL Urine Glucose (UA) Negative (Negative) mg/dL Urine Ketones Trace H (Negative) mg/dL Ur Blood (Man) Negative (Negative) Urine Nitrate Negative (Negative) Urine Bilirubin Negative (Negative) Urine Urobilinogen 1.0 (<2.0) mg/dL Leukocyte Esterase Rfl Negative (Negative) BRANDIN/UL POC Urine HCG, Qual (Negative) <Faby Stephens, SUPERVISOR LOADING - Last Filed: 10/02/24 18:08> Lab Results 10/02/24 10/02/24 10/02/24 Range/Units 18:07 18:10 18:10 WBC 10.1 H (4.5-10.0) K/mm3 RBC 4.83 (4.2-5.4) M/mm3 Hgb 13.1 (12.0-15.0) g/dL Hct 40.8 (37.0-47.0) % MCV 84.5 (80-100) fl MCH 27.1 (26-34) pg MCHC 32.1 (32-36) g/dl RDW 13.2 (11.5-14.5) % Plt Count 333 (150-375) k/mm3 MPV 10.4 (7.4-10.4) fl Immature Gran % (Auto) 0.5 (0-0.5) % Neut % (Auto) 66.2 (45.5-73.1) % Lymph % (Auto) 24.7 (18.3-44.2) % [place] % (Auto) 7.3 (2.6-8.5) % Eos % (Auto) 1.0 (0-4.4) % Baso % (Auto) 0.3 (0.2-1.2) % Lymph # (Auto) 2.49 (0.9-3.2) K/mm3 [place] # (Auto) 0.7 H (0.1-0.6) K/mm3 Eos # (Auto) 0.1 (0-0.3) K/mm3 Baso # (Auto) 0.0 (0.0-0.1) K/mm3 Abs Immat Gran (auto) 0.05 H (0.00-0.031) K/mm3 Absolute Neuts (auto) 6.7 (1.3-6.7) K/mm3 Absolute Nucleated RBC 0.000 (0.0-0.012) K/mm3 Nucleated RBC % 0.0 (0.0-0.2) % PT 12.7 (11.1-14.7) Seconds INR 0.9 APTT 31.0 (22.3-36.8) Seconds Sodium 139 (137-145) mmol/L Potassium 3.7 (3.4-5.0) mmol/L Chloride 100 (98-107) mmol/L Carbon Dioxide 28 (22-30) mmol/L Anion Gap 11 (4-12) mmol/L BUN 17 (7-17) mg/dL Creatinine 0.82 (0.7-1.0) mg/dL Estim Creat Clear Calc 78 ml/min Estimated GFR > 60 (59 - ) Glucose 97 (65-110) mg/dL Calcium 9.5 (8.4-10.2) mg/dL Total Bilirubin 0.2 (0.2-1.3) mg/dL AST 16 (14-36) U/L ALT 16 (6-35) U/L Alkaline Phosphatase 63 (38-126) U/L Total Protein 7.0 (6.3-8.2) g/dL Albumin 4.4 (3.5-5.1) g/dL Lipase 91 Cancelled (23-300) U/L Beta HCG, Quant < 2.39 mIU/ML Urine Color (Yellow) Urine Appearance (Clear) Urine pH (5.0-9.0) Ur Specific [place] (1.001-1.035) Urine Protein (Negative) mg/dL Urine Glucose (UA) (Negative) mg/dL Urine Ketones (Negative) mg/dL Ur Blood (Man) (Negative) Urine Nitrate (Negative) Urine Bilirubin (Negative) Urine Urobilinogen (<2.0) mg/dL Leukocyte Esterase Rfl (Negative) BRANDIN/UL POC Urine HCG, Qual Negative (Negative) 10/02/24 Range/Units 18:10 WBC (4.5-10.0) K/mm3 RBC (4.2-5.4) M/mm3 Hgb (12.0-15.0) g/dL Hct (37.0-47.0) % MCV (80-100) fl MCH (26-34) pg MCHC (32-36) g/dl RDW (11.5-14.5) % Plt Count (150-375) k/mm3 MPV (7.4-10.4) fl Immature Gran % (Auto) (0-0.5) % Neut % (Auto) (45.5-73.1) % Lymph % (Auto) (18.3-44.2) % [place] % (Auto) (2.6-8.5) % Eos % (Auto) (0-4.4) % Baso % (Auto) (0.2-1.2) % Lymph # (Auto) (0.9-3.2) K/mm3 [place] # (Auto) (0.1-0.6) K/mm3 Eos # (Auto) (0-0.3) K/mm3 Baso # (Auto) (0.0-0.1) K/mm3 Abs Immat Gran (auto) (0.00-0.031) K/mm3 Absolute Neuts (auto) (1.3-6.7) K/mm3 Absolute Nucleated RBC (0.0-0.012) K/mm3 Nucleated RBC % (0.0-0.2) % PT (11.1-14.7) Seconds INR APTT (22.3-36.8) Seconds Sodium (137-145) mmol/L Potassium (3.4-5.0) mmol/L Chloride (98-107) mmol/L Carbon Dioxide (22-30) mmol/L Anion Gap (4-12) mmol/L BUN (7-17) mg/dL Creatinine (0.7-1.0) mg/dL Estim Creat Clear Calc ml/min Estimated GFR (59 - ) Glucose (65-110) mg/dL Calcium (8.4-10.2) mg/dL Total Bilirubin (0.2-1.3) mg/dL AST (14-36) U/L ALT (6-35) U/L Alkaline Phosphatase (38-126) U/L Total Protein (6.3-8.2) g/dL Albumin (3.5-5.1) g/dL Lipase (23-300) U/L Beta HCG, Quant Cancelled mIU/ML Urine Color Yellow (Yellow) Urine Appearance Clear (Clear) Urine pH 6.0 (5.0-9.0) Ur Specific [place] 1.028 (1.001-1.035) Urine Protein Negative (Negative) mg/dL Urine Glucose (UA) Negative (Negative) mg/dL Urine Ketones Trace H (Negative) mg/dL Ur Blood (Man) Negative (Negative) Urine Nitrate Negative (Negative) Urine Bilirubin Negative (Negative) Urine Urobilinogen 1.0 (<2.0) mg/dL Leukocyte Esterase Rfl Negative (Negative) BRANDIN/UL POC Urine HCG, Qual (Negative) <Tomasa Byrne PA-C - Last Filed: 10/02/24 23:50> Imaging Data Attestation: I personally reviewed and interpreted this imaging study as follows: < Tomasa Byrne PA-C - Last Filed: 10/02/24 23:50> Radiologist's impression: ITS Impressions Abdomen/Pelvis CT 10/02/24 18:36 IMPRESSION: No acute intra-abdominal pathology, as detailed above. Pelvis Ultrasound 10/02/24 23:15 IMPRESSION: Unremarkable ultrasound examination of the pelvis, as detailed above. <Faby Stephens APRN - Last Filed: 10/02/24 18:08> ITS Impressions Abdomen/Pelvis CT 10/02/24 18:36 IMPRESSION: No acute intra-abdominal pathology, as detailed above. Pelvis Ultrasound 10/02/24 23:15 IMPRESSION: Unremarkable ultrasound examination of the pelvis, as detailed above. <Tomasa Byrne PA-C - Last Filed: 10/02/24 23:50> Discharge Plan Discharge Clinical Impression: Right lower quadrant abdominal pain <Faby Stephens APRN - Last Filed: 10/02/24 18:08> Patient Disposition: Home, Self-Care <Faby Stephens APRN - Last Filed: 10/02/24 18:08> Condition: Stable <Faby Stephens APRN - Last Filed: 10/02/24 18:08> Instructions: Antibiotic Form, Pelvic Pain in Women (ED), Abdominal Pain (ED) <Faby Stephens APRN - Last Filed: 10/02/24 18:08> Additional Instructions: Your workup here was reassuring. Continue Tylenol and ibuprofen as needed for pain. Utilize Zofran for nausea. Continue to follow-up with your OBGYN and/or primary care doctor for further evaluation. Return to the ED if you experience worsening or severe pain, unable to keep down food or drink, persistent fevers, rectal bleeding, dark black stools, or any other symptoms of concern. <Faby Stephens APRN - Last Filed: 10/02/24 18:08> Patient Language: Tuvaluan <Faby Stephens APRN - Last Filed: 10/02/24 18:08> Prescriptions: New ondansetron 4 mg tablet,disintegrating 4 mg PO Q8H PRN (Reason: nausea and vomiting) Qty: 10 0RF No Action benzonatate 200 mg capsule 200 mg PO TID PRN (Reason: cough) Qty: 20 0RF methylprednisolone [Medrol (Antione)] 4 mg tablets,dose pack See Rx Instructions .ROUTE .COMPLEX Qty: 21 0RF Rx Instructions: orally per package directions albuterol sulfate 90 mcg/actuation HFA aerosol inhaler 2 puff inhalation QID PRN (Reason: shortness of breath or wheezing) Qty: 8.5 0RF <Faby Stephens APRN - Last Filed: 10/02/24 18:08> Follow-up/Referrals: Zeyad Monique MD [Primary Care Provider] - <Faby Stephens APRN - Last Filed: 10/02/24 18:08> Time of Disposition: 23:32 <Faby Stephens APRN - Last Filed: 10/02/24 18:08> 23:32 <Tomasa Byrne PA-C - Last Filed: 10/02/24 23:50>
[2024-10-02 18:18] LABS: BEDSIDEPREGUCG Negative (Negative)
[2024-10-02 18:20] LABS: Basophils Percent Auto 0.3 % (0.2-1.2); Eosinophils Absolute Auto 0.1 K/mm3 (0-0.3); Hematocrit 40.8 % (37.0-47.0); Hemoglobin 13.1 g/dL (12.0-15.0); Immature Granulocyte Absolute 0.05 K/mm3 (0.00-0.031); Immature Granulocyte Percent A 0.5 % (0-0.5); Lymphocytes Absolute Auto 2.49 K/mm3 (0.9-3.2); Lymphocytes Percent Auto 24.7 % (18.3-44.2); Mean Corpuscular HGB Conc 32.1 g/dl (32-36); Mean Corpuscular Hemoglobin 27.1 pg (26-34); Mean Corpuscular Volume 84.5 fl (80-100); Mean Platelet Volume 10.4 fl (7.4-10.4); Monocytes Absolute Auto 0.7 K/mm3 (0.1-0.6); Monocytes Percent Auto 7.3 % (2.6-8.5); Neutrophils Absolute Auto 6.7 K/mm3 (1.3-6.7); Neutrophils Percent Auto 66.2 % (45.5-73.1); Platelet Count Result 333 k/mm3 (150-375); Red Blood Count 4.83 M/mm3 (4.2-5.4); Red Cell Distribution Width 13.2 % (11.5-14.5); White Blood Count 10.1 K/mm3 (4.5-10.0)
[2024-10-02 18:22] LABS: Add Urine Microscopic? NO; Appearance Urine Clear (Clear); Bilirubin Urine Negative (Negative); Blood Urine Negative (Negative); Color Urine Yellow (Yellow); Glucose Urine UA Negative (Negative); Ketones Urine Trace mg/dL (Negative); Leukocyte Esterase Ur Negative LEU/UL (Negative); Nitrate Urine Negative (Negative); Protein Urine Negative (Negative); Specific Grav Ur 1.028 (1.001-1.035)
[2024-10-02 18:32] LABS: Alanine Aminotransferase 16 U/L (6-35); Albumin Level 4.4 g/dL (3.5-5.1); Alkaline Phosphatase 63 U/L (38-126); Anion Gap 11 mmol/L (4-12); Aspartate Amino Transferase 16 U/L (14-36); Bilirubin,Total 0.2 mg/dL (0.2-1.3); Blood Urea Nitrogen 17 mg/dL (7-17); Calcium 9.5 mg/dL (8.4-10.2); Carbon Dioxide 28 mmol/L (22-30); Chloride 100 mmol/L (98-107); Estimated CRCL calculation 78 ml/min; Estimated Glomerular Filt Rate > 60; Glucose 97 mg/dL (65-110); Lipase 91 U/L (23-300); Potassium 3.7 mmol/L (3.4-5.0); Sodium 139 mmol/L (137-145)
[2024-10-02 18:34] LABS: INR 0.9; Prothrombin Time 12.7 Seconds (11.1-14.7)
[2024-10-02 18:49] LABS: Beta HCG Quantitative < 2.39 mIU/ML
[2024-10-02 22:46] VITALS: BP 142/99; PULSE 60; RESP 17; O2SAT 99
[2024-10-02 23:20] VITALS: BP 117/91; PULSE 64; RESP 17; O2SAT 99
[2024-10-02 23:39] VITALS: BP 122/82; PULSE 68; RESP 15; O2SAT 100
[2024-10-02 23:40] VITALS: BP 122/82; PULSE 68; RESP 15; O2SAT 100
[2024-10-03 15:30] LABS: Estimated CRCL calculation 71 ml/min; Estimated Glomerular Filt Rate > 60
== END 2024-10-02 23:44 | disposition home or self-care (01) ==
LOC: ANHED 23:08
PROVIDERS: Registered Nurse; Emergency Provider Physician Assistant; PCP Family Medicine
DX: R10.31 Right lower quadrant pain (principal); Z87.891 Personal history of nicotine dependence
CPT/HCPCS: 36415; 74177; 76856; 80053; 81003; 81025; 82565; 83690; 84702; 85025; 85610; 85730; 99284; Q9967

== ENCOUNTER 2024-10-06 00:12 | Day surgery (SDC) | payer OTHER, SELFPAY ==
[2024-09-21 13:01] VITALS: BMI 29.8
--- NOTE | 2024-09-21 13:11 | SUR.PREOP ---
Report to the Outpatient Waiting Room, entrance under the green pavilion located off [facility], at time 7:30a.m. on date 10/06/2024. Planned Procedure Time: 9:30a.m.? Time changes happen often and if your time is changed the preop area will call you the afternoon before. - You and your visitor will be asked to self-screen and do not enter if you have any COVID symptoms. Please call surgeon if you need to reschedule. - A mask is optional within the hospital at this time. Patients may have clear liquids (water, carbonated beverages, clear teas, apple juice) until 3 hours prior to surgery with a maximum of 20 ounces. - No food from midnight until time of surgery and no smoking, or chewing tobacco (or any form of nicotine). No chewing gum, candy or mints. Take only the following medications with a SIP of water on the morning of surgery: N/A DO NOT STOP ANY OF YOUR OTHER PRESCRIPTION MEDICATIONS PRIOR TO SURGERY EXCEPT THE FOLLOWING Hold all vitamins and supplements for 3 days per anesthesiologist. Medications to discontinue per physician N/A Date to take last dose N/A Please no make-up, nail luxembourgish, hairspray, perfume, deodorant, or body powder the day of surgery.? No jewelry (including any body piercings) or valuables the day of surgery, leave them at home.? Please take a shower or bath the night before, or the morning of, surgery with an antibacterial soap.? Wear comfortable, loose fitting clothing.? - Jewelry must be removed prior to entering the operating room.? Rings and piercings that are not removed may be cut off. - The hospital will not accept responsibility for valuables.? - Please leave all valuables, including medications, at home the day of surgery. If you are going home after surgery, a licensed swing driver must drive you home.? - NO public transportation without another adult if you receive anesthesia. - We recommend that an adult stay with you for 24 hours following discharge. - We also recommend that you do not drive, make important decision, drink alcoholic beverages, or take any drugs that were not prescribed by your health care provider for at least 24 hours after your discharge time. Follow any additional instructions given to you from your surgeon. Telephone instructions given to Charis Austin and asked if any additional questions and then verbalized understanding. Patient advised to call surgeon office or pre surgery nurse liaison [phone] if any additional questions.
--- NOTE | 2024-10-03 12:43 | PM.IMHP ---
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 Risks and benefits reviewed. These were large and unable to be removed in the office with other means. Review of Systems Review of Systems: All systems reviewed & are unremarkable except as noted in HPI. All systems reviewed & are unremarkable except as noted in HPI and below PMFSH Social History Social History Smoking packs per day: 0.5 Smoking cigarettes per day: 10.0 Years smoked: 16 Smoking pack-years: 8.00 Smoking status: Former smoker Tobacco type: e-cigarettes/vaping Alcohol intake: current Alcohol use details: very rare Living arrangements: with family Spiritual care concerns: No Meds Home Medications and Allergies Home Medications ?Medication ?Instructions ?Recorded ?Confirmed ?Type albuterol sulfate 90 mcg/actuation 2 puff inhalation QID PRN 09/26/24 Rx aerosol inhaler shortness of breath or wheezing #8.5 grams benzonatate 200 mg capsule 200 mg PO TID PRN cough #20 caps 09/26/24 Rx methylprednisolone 4 mg tablets in See Rx Instructions PO .COMPLEX 09/26/24 Rx a dose pack (Medrol (Antione)) #21 ea ondansetron 4 mg disintegrating 4 mg PO Q8H PRN nausea and 10/02/24 Rx tablet vomiting #10 tabs Allergies Allergy/AdvReac Type Severity Reaction Status Date / Time No Known Allergies Allergy Verified 09/24/24 08:55 Exam Const: General: cooperative, healthy appearing and comfortable Nutritional Appearance: average body habitus Orientation/consciousness: oriented to person, oriented to place and oriented to time HENMT: Head: normal to inspection Resp: Effort & Inspection: normal respiratory effort Cardio: Rate: regular rate Rhythm: regular rhythm Heart sounds: S1 normal heart sound present and S2 normal heart sound present GI: Inspection: normal to inspection : External Female Exam: lesion (Multiple condyloma acuminata on each side of the labia) Speculum Exam - Vagina: normal appearance of the vagina Speculum Exam - Cervix: normal appearance of the cervix Bimanual exam- vagina & uterus: normal bimanual exam Assessment and Plan Assessment and plan (1) Condyloma acuminata: Code(s): A63.0 - Anogenital (venereal) warts Status: Acute Plan Proceed with laser CO2 of the condyloma acuminata
[2024-10-06] VITALS (7 sets, daily range): BP systolic 94–130; BP diastolic 58–86; PULSE 55–82; RESP 12–16; TEMP 36.7–36.8; O2SAT 98–100; BMI 29.9
--- NOTE | 2024-10-06 06:05 | WPDHPUPDATE1 ---
History and Physical Update Update Date/Time: 10/06/24 06:05 History and Physical has been reviewed, including an updated exam of the patient. There are NO changes in the patient's condition. Risks, benefits, and alternatives have been discussed and questions answered. Patient agrees to proceed with procedure.
--- NOTE | 2024-10-06 08:50 | WPDANESEPPF ---
Anes - Initial Pre Proc Eval Procedure: Operation Date: 10/06/24 09:30 Proposed Procedures p CO2 Laser Extensive Condyloma of Vulva, Labia and Pubis - Jonas Lazaro MD Date/Time: 10/06/24 08:50 Surgeon: Jonas Lazaro MD Pre Op Diagnosis: extensive condyloma of vulva Patient Data Age: 34 Gender: F Height: 1.55 m Weight: 71.8 kg Last Vital Signs Temp 36.8 C 10/06/24 08:00 Pulse 82 10/06/24 08:00 Resp 16 10/06/24 08:00 BP 128/86 10/06/24 08:00 Pulse Ox 98 10/06/24 08:00 O2 Del Method Room Air 10/06/24 08:00 Allergies Allergy/AdvReac Type Severity Reaction Status Date / Time No Known Allergies Allergy Verified 09/24/24 08:55 Home Medications ?Medication ?Instructions ?Recorded ?Confirmed ?Type hydrocodone 5 mg-acetaminophen 325 1 tablet PO Q4H PRN pain #20 tabs 10/06/24 Rx mg tablet Patient hx anesthesia problems: none Family hx anesthesia problems: none Results Review: All pre-operative results and documents have been reviewed as part of the pre-operative evaluation. [facility] Social History Social History Smoking packs per day: 0.5 Smoking cigarettes per day: 10.0 Years smoked: 16 Smoking pack-years: 8.00 Smoking status: Former smoker Tobacco type: e-cigarettes/vaping Alcohol intake: current Alcohol use details: very rare Living arrangements: with family Spiritual care concerns: No Anes - Eval Final PreProcedure Day of Procedure 10/06/24 08:50 Patient weight: overweight Heart: regular rate and rhythm Lungs: clear to auscultation Airway: Mallampati scale class II Neurological: alert and oriented Last oral intake: >/= 8 hours ASA classification: II Emergent: no Anesthetic plan: proceed Anesthesia type and monitoring: general GIVS and standard monitoring Results Review: All pre-operative results and documents have been reviewed as part of the pre-operative evaluation. Informed Consent: The patient's anesthetic plan and its attendant risks and benefits were discussed with the patient/family/POA. Questions were solicited and answers provided to the satisfaction of the patient/family/POA.
[2024-10-06 09:02] LABS: BEDSIDEPREGUCG Negative (Negative)
[2024-10-06] MEDS: KETOROLAC 15 MG/ML VIAL (*BKC) IV PUSH (10:45)
[2024-10-06] MEDS: SILVER SULFADIAZINE 1% CR 50 GM JAR (*BKC) 1 APPLIC TOPICAL (10:47)
--- NOTE | 2024-10-06 10:49 | W.PM.PROC2 ---
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 Findings Multiple condyloma acuminata seen bilaterally on the perineum and lateral edges of the vagina Description of Procedure The patient was prepped draped in the normal sterile fashion placed in the supine in the lithotomy position. Under excellent LMA anesthesia these areas were noted and were burned with CO2 laser at 10 w per 2nd until complete desiccation was undertaken blood loss was 0cc there were swabbed with Silvadene cream she has follow-up in 2 weeks time there were no complications Estimated Blood Loss 1 Drains No Packing No Pathology None sent Complications No immediate complications Condition Stable Disposition PACU
[2024-10-06] MEDS: LACTATED RINGERS 1,000 ML 30 ML IV CONT (10:52)
== END 2024-10-06 12:28 | disposition home or self-care (01) ==
PROVIDERS: PCP Family Medicine; Visit Provider Obstetrics & Gynecology
PROC: (CPT 56515; principal; 2024-10-06 09:30)
DX: A63.0 Anogenital (venereal) warts (principal); Z87.891 Personal history of nicotine dependence
CPT/HCPCS: 56515; A9270; J1100; J1885; J2003; J2250; J2405; J2704; J3010; J7120

== ENCOUNTER 2024-11-28 08:41 | Emergency (ER) | payer OTHER, SELFPAY ==
[2024-11-28 08:48] VITALS: BP 135/90; PULSE 82; RESP 18; TEMP 36.8; O2SAT 100
--- NOTE | 2024-11-28 08:57 | ED.BACK ---
HPI - Back Pain/Injury General Chief Complaint: Back Pain/Injury Stated Complaint: Back Pain Time Seen by Provider: 11/28/24 08:48 Source: patient, RN notes reviewed and old records reviewed Mode of arrival: ambulatory Limitations: no limitations History of Present Illness HPI Narrative: [age] year old female presents to the [facility] with left lower back pain that started on Wednesday, 2 days ago. Patient reports that she was cleaning. Was sitting on the floor and she went to get up started having pain. No trauma to the area. No midline tenderness. No loss retention of bowel or bladder. No saddle anesthesia. Pain is worse with movement. Has taken ibuprofen and using topical muscle cream with no relief. Patient is walking, looks mildly uncomfortable. Onset (ago): day(s) (2) Related Data Allergies Allergy/AdvReac Type Severity Reaction Status Date / Time No Known Allergies Allergy Verified 11/28/24 08:55 Review of Systems Review of Systems: All systems reviewed & are unremarkable except as noted in HPI and below Constitutional: Constitutional: Reports no additional constitutional complaints Gastrointestinal: Gastrointestinal: Reports no additional gastrointestinal complaints Genitourinary: Genitourinary: Reports no additional female genitourinary complaints Musculoskeletal: Musculoskeletal: Reports as per HPI and Reports back pain ( Left lower) Integumentary/Breasts: Skin/Breast: Reports system reviewed and no additional complaints, except as docu Neurologic: Reports system reviewed and no additional complaints, except as documented PMFSH Social History Social History Smoking packs per day: 0.5 Smoking cigarettes per day: 10.0 Years smoked: 16 Smoking pack-years: 8.00 Smoking status: Former smoker Tobacco type: e-cigarettes/vaping Alcohol intake: current Alcohol use details: very rare Living arrangements: with family Spiritual care concerns: No Comments At the time of my signature, I reviewed and agree with the nursing past medical, surgical, social, and family history. There is no relevant family history pertinent to the patient complaint. Exam Const: General: cooperative, healthy appearing, well developed, alert, uncomfortable, well groomed and well nourished Nutritional Appearance: well nourished Orientation/consciousness: patient oriented x3 Limitations: no limitations HENMT: Head: normal to inspection Eyes: General: appearance normal, both eyes and all related structures Alignment and Position: alignment normal Neck: Neck: normal visual inspection, full ROM, no lymphadenopathy and no meningeal signs Chest: Chest palpation & inspection: normal inspection of the chest Resp: Effort & Inspection: normal respiratory effort and able to speak in complete sentences Cardio: Rate: regular rate GI: GI Palp: No abdominal tenderness and Yes Soft to palpation : General: Yes no CVA tenderness Back/Spine/Pelvis: Back: No ecchymosis and back tenderness Cervical Spine: normal cervical lordosis, cervical ROM normal and No Cervical spine tenderness Thoracic/Lumbar Spine: paraspinal muscle tenderness on the left in the mid lumbar and in the lower lumbar, No thoracic spinal tenderness and No lumbar spinal tenderness Pelvis: no pain with anterior-posterior compression, no pain with lateral compression, no buttock ecchymosis, no buttock tenderness and no buttock swelling Sacroiliac joints: on the left tender to palpation Back/spine/pelvis image:  1. pain with movement, no erythema, ecchymosis noted. No swelling noted. No rashes noted. No midline tenderness. No spasming noted Skin: General skin exam: normal color and no rashes or lesions noted Rashes: no rashes Neuro: General: patient oriented x3, moves all extremities and no meningeal signs Cognition (Neuro): normal cognition Speech: normal speech Sensory Exam: normal sensation Extrem: General: normal to inspection, full ROM and capillary refill normal Psych: Appearance: grossly normal and well kempt Mental Status: mental status grossly normal Speech and movement: Normal speech and movement present and Clear speech present Affect: normal affect Attitude: cooperative Course Course Level of Care: Express Care Visit Vital Signs Vital signs: Vital Signs Temperature 98.2 F 11/28/24 08:48 Pulse Rate 82 11/28/24 08:48 Respiratory Rate 18 11/28/24 08:48 Blood Pressure 135/90 11/28/24 08:48 Pulse Oximetry 100 11/28/24 08:48 Oxygen Delivery Room Air 11/28/24 08:48 Temperature 98.2 F 11/28/24 08:48 Pulse Rate 82 11/28/24 08:48 Respiratory Rate 18 11/28/24 08:48 Blood Pressure 135/90 11/28/24 08:48 Pulse Oximetry 100 11/28/24 08:48 Oxygen Delivery Room Air 11/28/24 08:48 Reviewed MDM - Back Pain/Injury MDM Narrative Medical decision making narrative: patient sitting mildly uncomfortable in exam room. Patient is nontoxic, vitals are stable. Patient presents with 2 day history of left lower back pain. Patient denies any urinary symptoms. Denies any saddle anesthesia, midline tenderness, loss of bowel or bladder. Pain is worse with movement patient is appropriate for outpatient treatment with close follow-up. Discussed in detail signs and symptoms to proceed to the emergency room and stressed the importance of following up with primary care provider Discharge instructions reviewed with patient, as well as provided in writing per nursing staff. The instructions also include specific and strict return/GO TO THE ER as well as f/u information. All questions have been answered, and the patient deny any further questions with discharge and discharge plan. Some parts of this dictation were generated by voice recognition software and may contain typographical and/or grammatical inaccuracies. Differential Diagnosis Differential diagnosis: Likely lumbar radiculopathy, sciatica, strain of lumbar region, pyelonephritis and other (Kidney stones appendicitis,, edith) Critical Care Time Critical Care Time Critical Care Time: No Discharge Plan Discharge Clinical Impression: Strain of lumbar region Qualifiers: Encounter type: initial encounter Qualified Code(s): S39.012A - Strain of muscle, fascia and tendon of lower back, initial encounter Patient Disposition: Home Condition: Stable Instructions: Antibiotic Form, Low Back Strain (ED), Lower Back Exercises (ED) Additional Instructions: Take ibuprofen as directed to decrease inflammation and to help pain. Take Baclofen (muscle relaxer) as directed. Do not drink, drive, operate machinery, or do anything dangerous while taking this medication Exercise:Combine aerobic exercise, like walking or swimming, with specific exercises to keep the muscles in your back and abdomen strong and flexible. Proper Lifting:Be sure to lift heavy items with your legs, not your back. Do not bend over to pick something up. Keep your back straight and bend at your knees. Weight:Maintain a healthy weight. Being overweight puts added stress on your lower back. Avoid Smoking:Both the smoke and the nicotine cause your spine to age faster than normal. Proper Posture:Good posture is important for avoiding future problems. A therapist can teach you how to safely stand, sit, and lift. Use warm moist heat to help with pain. Using topical such as Biofreeze, Darien-Hsieh or Aspercreme can also help Follow up with Primary provider in 2-3 days, This may become a chronic condition and they will be the one to help manage your pain and order additional testing. Go to the nearest ER if you develop problems with bladder/bowel function, weakness or loss of feeling in one or both of your legs. Patient Language: Bengali Prescriptions: New baclofen 10 mg tablet 10 mg PO TID PRN (Reason: muscle pain) Qty: 15 0RF ibuprofen 600 mg tablet 600 mg PO TID PRN (Reason: fever or pain) Qty: 30 0RF lidocaine [Lidoderm] 5 % adhesive patch,medicated 1 patch topical DAILY Qty: 15 0RF Rx Instructions: leave on most painful area for up to 12 hrs No Action hydrocodone-acetaminophen 5-325 mg tablet 1 tablet PO Q4H PRN (Reason: pain) Qty: 20 0RF Follow-up/Referrals: Zeyad Monique MD [Primary Care Provider] - 1 Week (express care follow up) Stand Alone Forms: Work/School Release IP Time of Disposition: 09:00
== END 2024-11-28 09:05 | disposition home or self-care (01) ==
PROVIDERS: Emergency Provider Nurse Practitioner; PCP Family Medicine
DX: S39.012A Strain of muscle, fascia and tendon of lower back, initial encounter (principal); X50.1XXA Overexertion from prolonged static or awkward postures, initial encounter; Z87.891 Personal history of nicotine dependence; Z86.16 Personal history of COVID-19
CPT/HCPCS: 99213; G0463